=== PATIENT | female | born 1960 | race African-American/Black ===

== ENCOUNTER 2018-09-05 10:03 | Emergency (ER) | payer BC ==
[~2018-09-05] VITALS: Ht 160 cm; Wt 68.0 kg
[~2018-09-05 10:03] MED LIST: CIPROFLOXACIN500 M1 PO; CITRATE OF MAG296 ML PO; CLONIDINE0.1 PO; COLACE 100 MG100 MG PO; HYDROCHLOROTHIA25 M1 PO; HYDROCHLOROTHIA25 M2 PO; LISINOPRIL40 MG PO; NORCO 5-325 TA1 EACH PO
[2018-09-05] MEDS ORDERED: COREG6.25 MG PO (10:08)
[2018-09-05] MEDS ORDERED: CELEXA10 MG PO (10:09)
[2018-09-05] MEDS ORDERED: NORCO 5-325 TA1 EACH PO (12:37)
[2018-09-05] MEDS ORDERED: CYCLOBENZAPRINE5 MG PO (12:37)
[2018-09-05 12:38] VITALS: BP 164/97
== END 2018-09-05 12:40 | disposition home or self-care (01) ==
LOC: ER 10:03
DX: M25.561 Pain in right knee (principal); M25.562 Pain in left knee; M54.5 Low back pain; R51 Headache; I10 Essential (primary) hypertension; V49.09XA Driver injured in collision with other motor vehicles in nontraffic accident, initial encounter; Y93.89 Activity, other specified; Y92.410 Unspecified street and highway as the place of occurrence of the external cause; Y99.8 Other external cause status

== ENCOUNTER → 2018-11-15 | Outpatient (CLI) | payer BC ==
[~2018-11-15] MED LIST changes: +CELEXA10 MG PO; +COREG6.25 MG PO; +CYCLOBENZAPRINE5 MG PO
== END ==
LOC: RAD 11:35
DX: Z12.31 Encounter for screening mammogram for malignant neoplasm of breast (principal)

== ENCOUNTER 2019-05-21 09:39 | Emergency (ER) | payer BC ==
[~2019-05-21] VITALS: Ht 160 cm; Wt 72.6 kg
[2019-05-21 11:43] VITALS: BP 158/89
== END 2019-05-21 11:40 | disposition home or self-care (01) ==
LOC: ER 09:39
DX: J30.9 Allergic rhinitis, unspecified (principal); R09.81 Nasal congestion; I10 Essential (primary) hypertension; F10.10 Alcohol abuse, uncomplicated; Z79.899 Other long term (current) drug therapy

== ENCOUNTER → 2020-04-16 | Outpatient (CLI) | payer BC | LOC: BC 08:10 | PROVIDERS: ATTEND Family Medicine | DX: Z12.31 Encounter for screening mammogram for malignant neoplasm of breast (principal) ==

== ENCOUNTER → 2021-05-12 | Outpatient (CLI) | payer BC | LOC: BC 12:53 | PROVIDERS: ATTEND Family Medicine | DX: Z12.31 Encounter for screening mammogram for malignant neoplasm of breast (principal) ==

== ENCOUNTER → 2021-05-28 | Outpatient (CLI) | payer BC | LOC: BC 05-25 13:49 → ULTRA 09:05 → BC 14:53 | PROVIDERS: ATTEND Family Medicine | DX: N63.20 Unspecified lump in the left breast, unspecified quadrant (principal); N64.89 Other specified disorders of breast ==